=== PATIENT | male | born 1945 | race Caucasian/White ===

== ENCOUNTER 2019-12-08 | Emergency (ER) | payer MEDICARE ==
[2019-12-08] MEDS ORDERED: ATORVASTATIN CA10 MG PO (13:36)
[2019-12-08] MEDS ORDERED: ALPRAZOLAM0.5 M1 PO (13:36)
[2019-12-08] MEDS ORDERED: HYDROCHLOROT25 MG PO (13:37)
[2019-12-08] MEDS ORDERED: METFORMIN500 MG PO (13:37)
[2019-12-08] MEDS ORDERED: INDOCIN25 MG PO (13:38)
[2019-12-08] MEDS ORDERED: LISINOPRIL20 M1 PO (13:38)
[2019-12-08] MEDS ORDERED: TRIAMCINOLON0.11 EX (13:40)
[2019-12-08] MEDS ORDERED: QVAR REDIH80 MCG/ACT IN (13:41)
[2019-12-08] MEDS ORDERED: CODEINE/GUAIFEN1 SOL PO (15:12)
== END 2019-12-08 15:30 | disposition home or self-care (01) ==
DX: J02.0 Streptococcal pharyngitis (principal); J40 Bronchitis, not specified as acute or chronic; E11.9 Type 2 diabetes mellitus without complications; I10 Essential (primary) hypertension; Z79.84 Long term (current) use of oral hypoglycemic drugs